=== PATIENT | female | born 1985 | race African-American/Black ===

== ENCOUNTER 2022-01-26 04:14 | Inpatient (IN) | payer BC ==
[2022-01-23 14:15] VITALS: BMI 29.0
[2022-01-26] MEDS ORDERED: MIDAZOLAM HCL 2 MG/2 ML SINGLE DOSE VIAL ONE ×2 (07:39→07:45)
[2022-01-26] MEDS ORDERED: FENTANYL CITRATE/PF 50 MCG/ML VIAL ONE (07:39)
[2022-01-26] MEDS ORDERED: LIDOCAINE HCL/PF 2% SDV 5ML VIAL ONE (07:41)
[2022-01-26] MEDS ORDERED: PROPOFOL 20 ML ONE (07:41)
[2022-01-26] MEDS ORDERED: ROCURONIUM BROMIDE 50 MG/5 ML SYRINGE ONE (07:41)
[2022-01-26] MEDS ORDERED: BUPIVACAINE LIPOSOME/PF (EXPAREL) 266 MG/20 ML VIAL ONE (07:44)
[2022-01-26] MEDS ORDERED: BUPIVACAINE HCL/PF 0.5% (5MG/ML) 10 ML VIAL ONE (07:44)
[2022-01-26] MEDS ORDERED: HYDROmorphone HCl 2 MG/ML VIAL ONE (08:36)
[2022-01-26] MEDS ORDERED: ceFAZolin SODIUM 1 GM VIAL ONE (08:36)
[2022-01-26] MEDS ORDERED: TRANEXAMIC ACID 1000 MG/10 ML VIAL ONE (08:36)
[2022-01-26] MEDS ORDERED: ONDANSETRON 4 MG/2 ML VIAL ONE (08:37)
[2022-01-26] MEDS ORDERED: DEXAMETHASONE SOD PHOSPHATE 4 MG/1 ML VIAL ONE (08:37)
[2022-01-26] MEDS ORDERED: ceFAZolin SODIUM 1 GM VIAL IVPB ONE (08:45)
[2022-01-26] MEDS ORDERED: SEVOFLURANE 250 ML BTL ONE (08:48)
[2022-01-26] MEDS ORDERED: KETAMINE HCL 500 MG/10 ML VIAL ONE (08:49)
[2022-01-26] MEDS ORDERED: ACETAMINOPHEN INJECTION 100 ML IVPB ONE (09:05)
[2022-01-26] MEDS ORDERED: GLYCOPYRROLATE 0.2 MG/1 ML VIAL ONE (10:26)
[2022-01-26] MEDS ORDERED: NEOSTIGMINE METHYLSULFATE 0.5 MG/ML - 10 ML MDV ONE (10:26)
[2022-01-26] MEDS ORDERED: ONDANSETRON 4 MG/2 ML VIAL IVPUSH PRN (11:12)
[2022-01-26] MEDS ORDERED: ACETAMINOPHEN 1000 MG/100 ML BAG IVPB ONE (11:12)
[2022-01-26] MEDS ORDERED: oxyCODONE HCL 5 MG TABLET PO PRN ×2 (11:12)
[2022-01-26] MEDS ORDERED: ACETAMINOPHEN 500 MG TABLET (FP) PO SCH (11:30)
[2022-01-26] MEDS ORDERED: HYDROmorphone *PCA* 10MG/50ML DISP.SYRIN PCA SCH (12:15)
[2022-01-26] MEDS: ACETAMINOPHEN 1000 MG/100 ML BAG IVPB SCH ×2 (12:15→18:53)
[2022-01-26] MEDS ORDERED: HYDROmorphone *PCA* 10MG/50ML DISP.SYRIN PCA ONE (12:25)
[2022-01-26] MEDS: LACTATED RINGERS SOLUTION 1,000 ML IV SCH (18:44)
[2022-01-27] MEDS: ACETAMINOPHEN 1000 MG/100 ML BAG IVPB SCH ×2 (06:21→06:22)
[2022-01-27 08:43] LABS: HEMATOCRIT 34.2 % (32.4-45.2); HEMOGLOBIN 11.4 GM/dL (10.7-15.3); MCH 29.3 pg (25.7-33.7); MCHC 33.3 g/dl (32.0-36.0); MEAN CELL VOLUME 88.2 fl (80-96); PLATELET COUNT 223 10^3/uL (134-434); RBC 3.88 M/mm3 (3.60-5.2); RDW 13.9 % (11.6-15.6); WHITE BLOOD COUNT 11.5 K/mm3 (4.0-10.0)
[2022-01-27 09:01] LABS: CREATININE 0.8 mg/dL (0.55-1.3)
[2022-01-27] MEDS ORDERED: oxyCODONE HCL 5 MG TABLET PO PRN ×2 (09:10)
[2022-01-27] MEDS ORDERED: ACETAMINOPHEN 500 MG TABLET (FP) PO PRN (09:10)
[2022-01-27] MEDS: ENOXAPARIN NA (PORCINE) 40 MG/0.4 ML DISP.SYRIN SQ SCH (11:14)
[2022-01-27] MEDS: IBUPROFEN 600 MG TABLET (FP) PO SCH ×3 (11:15→22:01)
[2022-01-27] MEDS: amLODIPine BESYLATE 10 MG TABLET (FP) PO SCH (11:16)
[2022-01-27] MEDS: LACTATED RINGERS SOLUTION 1,000 ML IV SCH (20:26)
[2022-01-27 23:05] VITALS: RESP 18
[2022-01-28] MEDS: IBUPROFEN 600 MG TABLET (FP) PO SCH ×3 (03:59→16:00)
[2022-01-28] MEDS ORDERED: BISACODYL 10 MG SUPP.RECT PR ONE (09:26)
[2022-01-28] MEDS ORDERED: SIMETHICONE 80 MG TAB.CHEW (FP) PO PRN (09:26)
[2022-01-28] MEDS: ENOXAPARIN NA (PORCINE) 40 MG/0.4 ML DISP.SYRIN SQ SCH (09:39)
[2022-01-28] MEDS: amLODIPine BESYLATE 10 MG TABLET (FP) PO SCH (10:54)
[2022-01-28 12:20] VITALS: BP 141/90; PULSE 102; TEMP 98.2
== END 2022-01-28 15:50 | disposition home or self-care (01) | DRG 743 ==
LOC: J2C 04:14 → J3W 15:18
PROVIDERS: ADMIT Obstetrics & Gynecology; ATTEND Obstetrics & Gynecology
PROC: 0UB90ZZ Excision of Uterus, Open Approach (ICD-10-PCS; principal; 2022-01-26 08:00)
DX: D25.9 Leiomyoma of uterus, unspecified (principal); I10 Essential (primary) hypertension
CPT/HCPCS: 36415; 81025; 82565; 85027; 86850; 86900; 86901; 88305-TC; 94010; 94760